=== PATIENT | male | born 1990 | race Asian ===

== ENCOUNTER 2017-03-30 11:31 | Day surgery (SDC) | payer OTHER ==
[2017-03-30] VITALS (15 sets, daily range): BP systolic 108–123; BP diastolic 46–63; PULSE 50–84; RESP 11–24; Ht 170.2 cm; Wt 85.8 kg
[~2017-03-30] VITALS: Ht 170.2 cm; Wt 85.8 kg
[~2017-03-30 11:31] MED LIST: CEFAZOLIN 1 GM INJ ONE; CEFAZOLIN 2 GM/50 ML (PMX) 50 ML IVPB ONE
[2017-03-30] MEDS ORDERED: SOD CHLORIDE 0.9% 1,000 ML IV SCH (13:30)
[2017-03-30] MEDS ORDERED: DIPHENHYDRAMINE 50 MG INJ IV PRN (15:00)
[2017-03-30] MEDS ORDERED: FENTAnyl 50 MCG/ML VIAL IV PRN ×2 (15:00)
[2017-03-30] MEDS ORDERED: ALBUTEROL 0.083% (NEB) 2.5 MG/3 ML AMP HHN ONE (15:00)
[2017-03-30] MEDS ORDERED: ONDANSETRON 4 MG INJ IV PRN (15:00)
[2017-03-30] MEDS ORDERED: METOCLOPRAMIDE 10 MG INJ IV PRN (15:00)
[2017-03-30] MEDS ORDERED: MEPERIDINE 25 MG INJ IV PRN (15:00)
[2017-03-30] MEDS ORDERED: HYDROmorphONE (0.2 MG/ML) 10ML SYG IV PRN ×2 (15:00)
[2017-03-30] MEDS ORDERED: FENTAnyl 50 MCG/ML VIAL ONE (15:06)
[2017-03-30] MEDS ORDERED: POLYMYXIN/BACITRACIN 1L IRRIG ONE (15:06)
[2017-03-30] MEDS ORDERED: BUPIVACAINE 0.25% (MPF) 30 ML INJ ONE (15:06)
[2017-03-30] MEDS ORDERED: SUCCINYLCHOLINE CHLORIDE 100 MG/5 ML SYG IV ONE (15:33)
[2017-03-30] MEDS ORDERED: ROCURONIUM 50 MG INJ ONE (15:33)
[2017-03-30] MEDS ORDERED: LIDOCAINE 2% (SDV) 5 ML INJ ONE (15:33)
[2017-03-30] MEDS ORDERED: PROPOFOL 40 ML ONE (15:33)
[2017-03-30] MEDS ORDERED: ROPIVACAINE 0.5 % 30 ML VIAL ONE (15:48)
[2017-03-30] MEDS ORDERED: NEOSTIGMINE 3 MG/3 ML SYRINGE ONE (16:05)
[2017-03-30] MEDS ORDERED: GLYCOPYRROLATE 0.4 MG INJ ONE (16:05)
--- NOTE | 2017-03-30 16:14 | OPR ---
Date/Time of Note Date/Time of Note DATE: 03/30/17 TIME: 16:10 Operative Report Procedure Date: Mar 30, 2017 Preoperative Diagnosis LIH Postoperative Diagnosis incarcerated indirect LIH Operation Performed 1. open incarcerated left inguinal hernia repair with large ultrapro hernia system mesh 2. left ilioinguinal nerve block Surgeon: Homero SOLARES Indications 18-year-old male with left inguinal hernia. Patient requires surgical repair Procedure Description Patient is taken to the OR and prepped and draped the usual sterile fashion. Surgical timeout was performed IV antibiotics are given. Left inguinal oblique incision was made with a 10 blade. Dissection cautery was carried onto the external oblique fascia. The external oblique fascia is opened with a 15 blade this incision is extended medially inferiorly lateral superiorly with Metzenbaum scissors. Cord structures identified and encircled with a [place] drain. Indirect hernia is reduced. The disc portion of the Ultra pro system mesh is secured in place with a running 0 Prolene from the pubic tubercle along the shelving edge of the ligament. Superiorly the mesh is secured to the internal oblique with interrupted 3-0 Vicryl. Onlay mesh is secured in a similar fashion from the pubic tubercle along the shelving edge of the inguinal ligament with running 0 Prolene. Superiorly to the internal oblique this is secured with interrupted 3-0 Vicryl. Strep screen and reapproximated around the cord structures to recreate the inguinal ring with 0 Prolene. External oblique fascia was closed with running 3-0 Vicryl. Jovanni's was closed with interrupted 3-0 Vicryl. Skin is closed using skin albino local anesthesia is injected into the incision. Left ilioinguinal nerve block is placed by identifying a position 2 cm medial and inferior to the ASIS. Using a fatty motion left ilioinguinal nerve block is performed. Dry dressings were applied. Homero SOLARES Mar 30, 2017 16:14
[2017-03-30] MEDS: HYDROmorphONE (0.2 MG/ML) 10ML SYG IV PRN ×2 (16:29→16:50)
[2017-03-30] MEDS ORDERED: HYDROCODONE/APAP (5/325) TAB PO ONE (16:30)
== END 2017-03-30 18:35 | disposition home or self-care (01) ==
LOC: SDS 11:31
PROVIDERS: ATTEND Surgery
DX: K40.30 Unilateral inguinal hernia, with obstruction, without gangrene, not specified as recurrent (principal); E66.9 Obesity, unspecified; Z68.29 Body mass index [BMI] 29.0-29.9, adult
CPT/HCPCS: 49507; 94664; C1781; J0690; J1170; J2405; J2710; J3010; J7999; Z7512; Z7610; J2795

== ENCOUNTER 2017-08-30 11:40 | Day surgery (SDC) | payer OTHER ==
[2017-08-30] VITALS (12 sets, daily range): BP systolic 110–140; BP diastolic 55–68; PULSE 49–82; RESP 16–22; Ht 172.7 cm; Wt 88.3 kg
[~2017-08-30] VITALS: Ht 172.7 cm; Wt 88.3 kg
[~2017-08-30 11:40] MED LIST changes: -CEFAZOLIN 1 GM INJ ONE; -CEFAZOLIN 2 GM/50 ML (PMX) 50 ML IVPB ONE; +SOD CHLORIDE 0.9% 1,000 ML IV SCH
[2017-08-30] MEDS ORDERED: FENTAnyl 50 MCG/ML VIAL IV PRN ×2 (13:30)
[2017-08-30] MEDS ORDERED: HYDROmorphONE (0.2 MG/ML) 10ML SYG IV PRN ×2 (13:30)
[2017-08-30] MEDS ORDERED: METOCLOPRAMIDE 10 MG INJ IV PRN (13:30)
[2017-08-30] MEDS ORDERED: DIPHENHYDRAMINE 50 MG INJ IV PRN (13:30)
[2017-08-30] MEDS ORDERED: ONDANSETRON 4 MG INJ IV PRN (13:30)
[2017-08-30] MEDS ORDERED: MEPERIDINE 25 MG INJ IV PRN (13:30)
[2017-08-30] MEDS ORDERED: POLYMYXIN/BACITRACIN 1L IRRIG ONE (13:53)
[2017-08-30] MEDS ORDERED: BUPIVACAINE 0.25% (MPF) 30 ML INJ ONE ×2 (13:53→14:14)
[2017-08-30] MEDS ORDERED: FENTAnyl 50 MCG/ML VIAL ONE (14:15)
[2017-08-30] MEDS ORDERED: SUCCINYLCHOLINE CHLORIDE 100 MG/5 ML SYG IV ONE (14:28)
[2017-08-30] MEDS ORDERED: SUGAMMADEX SODIUM 200 MG/2 ML VIAL IV ONE (14:28)
[2017-08-30] MEDS ORDERED: PROPOFOL 20 ML ONE (14:28)
[2017-08-30] MEDS ORDERED: CEFAZOLIN 1 GM INJ ONE (14:28)
[2017-08-30] MEDS ORDERED: ROCURONIUM 50 MG INJ ONE (14:28)
[2017-08-30] MEDS ORDERED: LIDOCAINE 2% (SDV) 5 ML INJ ONE (14:28)
[2017-08-30] MEDS ORDERED: ROPIVACAINE 0.5 % 30 ML VIAL ONE (14:45)
--- NOTE | 2017-08-30 14:56 | OPR ---
Date/Time of Note Date/Time of Note DATE: 08/30/17 TIME: 14:54 Operative Report Procedure Date: Aug 30, 2017 Preoperative Diagnosis right incarcerated inguinal hernia Postoperative Diagnosis same Operation/Procedure Performed 1. open right incarcerated inguinal hernia repair with large ultrapro hernia system mesh 2. therapeutic injection of subcutaneous local anesthesia Surgeon see signature line [employer] Teacher none Anesthesia Type: general Estimated Blood Loss: 0 - 10 ml's Transfusion none Specimen none Grafts/Implants none Complications none Pt Condition Post Procedure: stable Indications This is a 18-year-old male with an incarcerated right inguinal hernia. He requests surgical repair. Risks alternatives benefits and percent were discussed the patient. Patient's best understanding consents to the operation. Procedure Description Patient taken to the OR and prepped and draped in usual sterile fashion. Surgical timeout was performed. IV antibiotics given. Right inguinal oblique incision is made with a 10 blade. Dissection Carrs carried onto the extremity fascia. Externally fascia is open with a 15 blade. This incision is extended medially inferiorly lateral superiorly with Metzenbaum scissors. Cord structures identified and encircled with a [place] drain. Large direct hernia is buttressed with the distal portion of the ultrapure hernia with mesh. This is secured from the pubic tubercle along the shelving of the inguinal ligament with a running 0 Prolene. The disc is secured to intra-oblique with interrupted 3-0 Vicryl. Onlay mesh is secured in a similar fashion with a running 0 Prolene from the pubic tubercle along the shelving of the inguinal ligament. Structure creating reapproximated around the cord structures to re- create the inguinal ring with interrupted 0 Prolene. Onlay mesh is secured to intra-bleed with interrupted 0 Vicryl. Extremity fascia was closed with running 3-0 Vicryl. Jovanni's fascia was closed with interrupted Vicryl. Skin was closed using inzorb absorbable stapler. Therapeutic sub-contains local anesthesia was injected throughout the incision site. Dressings were applied. Homero SOLARES Aug 30, 2017 14:56
[2017-08-30] MEDS ORDERED: HYDROCODONE/APAP (5/325) TAB PO ONE (15:00)
[2017-08-30] MEDS: HYDROmorphONE (0.2 MG/ML) 10ML SYG IV PRN ×3 (15:22→15:35)
== END 2017-08-30 17:10 | disposition home or self-care (01) ==
LOC: SDS 11:40
PROVIDERS: ATTEND Surgery
DX: K40.90 Unilateral inguinal hernia, without obstruction or gangrene, not specified as recurrent (principal); E66.01 Morbid (severe) obesity due to excess calories
CPT/HCPCS: 49507; C1781; J0690; J1170; J2795; J3010; Z7512; Z7610

== ENCOUNTER 2018-05-03 08:22 | Day surgery (SDC) | END 2018-05-03 13:00 | disposition home or self-care (01) ==